=== PATIENT | female | born 1950 | race Caucasian/White ===

== ENCOUNTER → 2016-05-24 | Outpatient (CLI) | payer OTHER, MEDICAID ==
--- NOTE | 2016-05-24 15:03 | CT ---
Unenhanced CT Scan of the Chest Clinical History: 65-year-old female with no prior tobacco use history who presents for follow-up of small groundglass nodules. Technique: Unenhanced helical CT imaging of the chest was obtained utilizing 5.00 mm collimated slice s through the thorax, and reformatted at 1.25 mm and 2.50 mm increments. Multiplanar reconstructions are reviewed. Dose reduction techniques were utilized. The DFOV is 34.0 cm. Comparison Studies: Unenhanced CT scan of the chest dated 05/23/2015, and contrast-enhanced CT scan of the chest, dated 12/24/2014. Findings: Lung Windows: There is a stable 5 x 6 mm groundglass attenuation nodule in the right apex on series 3 image 36. There is a thin-walled pneumatocele seen in the medial right apex on this same image. Ther e is a linear scar seen in the right apex, extending to a 5 mm spiculated opacity on series 3 images 21-26, which is also stable. There is a linear scar in the upper medial right middle lobe and some mi nimal scarring at the medial right and left lower lobes, and in the inferolateral lingula. There are no other pulmonary nodules, or air space consolidation. The airway is clear, with no significant bron chial wall thickening. Mediastinal Windows: The cardiac chambers appear normal. There is no pericardial or pleural effusion. There are no pathologically-enlarged lymph nodes present within the axilla, mediastinum, or pulmonar y almita. There is LAD coronary artery atherosclerotic calcification, and minimal RCA coronary artery c alcification. The visualized portions of the thyroid gland are normal. The imaged portion of the uppe r abdomen is notable for a stable rounded hypodense cystic lesion in the anterior right hepatic lobe, measuring 10 mm in diameter. Osseous Windows: The bones are age-appropriate, with some degenerative changes of the spine. Impression: There has been no significant interval change since 12/24/2014. According to Fleischner Society guidelines, ground glass attenuation nodules greater than 5 mm should have annual surveillance CT for a minimum of 3 years. This will therefore be through December 2017.
== END ==
LOC: CIMAGING 13:38
PROVIDERS: ATTEND Internal Medicine
DX: R91.1 Solitary pulmonary nodule (principal); R39.0 Extravasation of urine; R30.0 Dysuria
CPT/HCPCS: 71250; G0463

== ENCOUNTER → 2018-05-07 | Outpatient (CLI) | payer OTHER | LOC: CIMAGING 13:01 | PROVIDERS: ATTEND Internal Medicine Gastroenterology | DX: K76.89 Other specified diseases of liver (principal); K21.9 Gastro-esophageal reflux disease without esophagitis | CPT/HCPCS: 76705-PO ==